=== PATIENT | male | born 1950 | race Caucasian/White ===

== ENCOUNTER → 2020-02-20 | Outpatient (CLI) | payer OTHER ==
[~2020-02-20] MED LIST: CARDIO OMEGA B1 EACH PO; CARVEDILOL6.25 M1 PO; DIGOXIN125 MCG PO; ELIQUIS5 MG PO; EPLERENONE25 MG PO; FUROSEMIDE 40 M40 M1 PO; JARDIANCE10 MG PO; LEVOTHYROXINE150 MCG PO; LOSARTAN POTASS50 MG PO; METFORMIN HCL500 MG PO; TRIGLIDE160 MG PO
== END ==
LOC: LAB
PROVIDERS: ATTEND Surgery
DX: Z20.828 Contact with and (suspected) exposure to other viral communicable diseases (principal)

== ENCOUNTER 2020-02-25 12:12 | Day surgery (SDC) | payer OTHER ==
[~2020-02-25] VITALS: Ht 185.4 cm; Wt 99.8 kg
[2020-02-25 13:07] LABS: HEMATOCRIT 41.9 % (42.0-52.0); HEMOGLOBIN 14.2 gm/dL (14.0-18.0); MCV 88.3 fL (80.0-100.0); RBC 4.74 mil/uL (4.50-6.00); RDW 13.4 % (10.5-14.5); WBC 5.6 thou/uL (4.0-11.0)
[2020-02-25 13:14] VITALS: BP 133/71
[2020-02-25 13:14] LABS: CALCIUM 10.1 mg/dL (8.5-10.1); CREATININE 1.1 mg/dL (0.7-1.3); POTASSIUM 4.4 mmol/L (3.5-5.1)
[2020-02-25] MEDS ORDERED: ACETAMINOPHEN325 M1 PO (16:33)
[2020-02-25] MEDS ORDERED: COLACE 100 MG100 MG PO (16:34)
[2020-02-25] MEDS ORDERED: MIRALAX17 GM PO (16:34)
[2020-02-25] MEDS ORDERED: PERCOCET PO (16:40)
[2020-02-25 16:44] VITALS: BP 133/71
== END 2020-02-25 17:15 | disposition home or self-care (01) ==
LOC: OR 12:12 → TBA 12:42 → OR 13:53
PROVIDERS: ATTEND Surgery
DX: K40.90 Unilateral inguinal hernia, without obstruction or gangrene, not specified as recurrent (principal); I10 Essential (primary) hypertension; E78.00 Pure hypercholesterolemia, unspecified; I48.91 Unspecified atrial fibrillation; E11.40 Type 2 diabetes mellitus with diabetic neuropathy, unspecified; E03.9 Hypothyroidism, unspecified; Z98.890 Other specified postprocedural states; Z79.899 Other long term (current) drug therapy; Z79.01 Long term (current) use of anticoagulants; Z87.891 Personal history of nicotine dependence
CPT/HCPCS: 50010; 50101; 50411; 50555; 50558; 50854; 50984; 52265; 52266; 53307; 53310; 54022; 54118; 56462; 56525; 56526; 62110; 62900; 70005